=== PATIENT | male | born 1955 | race Caucasian/White ===

== ENCOUNTER 2017-12-01 17:02 | Emergency (ER) | payer SELFPAY ==
[~2017-12-01 17:02] MED LIST: Sodium Chloride Irrig Solution 250 ML BOT ONE; Sterile Water Irrigation 250 ML BOT ONE
[2017-12-01] MEDS ORDERED: Adacel (T-DAP) 0.5 ML VIAL ONE (17:31)
[2017-12-01 17:50] LABS: #Basophils 0.2 thou/uL (0.0-0.2); #Eosinphils 0.3 thou/uL (0.0-0.7); #Lymphocytes 3.1 thou/uL (1.20-3.40); #Monocytes 0.5 thou/uL (0.11-0.59); #Neutrophils 5.6 thou/uL (1.40-6.50); %Basophils 1.7 % (0.0-1.0); %Eosinophils 3.3 % (0.0-10.0); %Lymphocytes 31.7 % (21.0-51.0); %Monocytes 5.6 % (0.0-10.0); %Neutrophils 57.7 % (42.0-75.0); Mean Corpuscular HGB CONC 31.5 g/dL (32.0-36.0); Mean Corpuscular Hemoglobin 29.8 pg (27.0-31.0); Mean Corpuscular Volume 94.5 fl (80.0-94.0); Mean Platelet Volume 6.6 fL (7.4-10.4); Platelet Count 362 thou/uL (130-400); RBC Distribution Width 13.1 % (11.5-14.5); Red Blood Cell (RBC) Count 5.36 mill/uL (4.70-6.10); White Blood Cell (WBC) Count 9.7 thou/uL (4.8-10.8)
[2017-12-01 18:02] LABS: ALT (SGPT) 33 U/L (8-55); AST (SGOT) 28 U/L (5-34); Albumin 4.3 g/dL (3.5-5.0); Alcohol 198 mg/dL (Less than 10); Alkaline Phosphatase 60 U/L (40-150); Anion Gap 14 mmol/L (10-20); BUN (Urea Nitrogen) 10 mg/dL (8.4-25.7); Bilirubin, Total 0.3 mg/dL (0.2-1.2); Calc. Creatinine Clearance 0 mL/min (70-130); Calcium 9.3 mg/dL (7.8-10.44); Carbon Dioxide 28 mmol/L (22-29); Chloride 104 mmol/L (98-107); Estimated GFR-MDRD Greater than 90; Glucose 99 mg/dL (70-105); Potassium 4.4 mmol/L (3.5-5.1); Protein, Total 7.3 g/dL (6.0-8.3); Sodium 142 mmol/L (136-145)
--- NOTE | 2017-12-01 18:17 | RAD ---
FOURTH AND FIFTH FINGERS LEFT HAND: 12/01/17 Three views obtained. HISTORY: Injury with table saw. Soft tissue disruption is seen involving the tips of both fourth and fifth fingers. There are fractur es involving the tuft of the distal phalanx of both fourth and fifth fingers. These fractures show mi ld displacement at both sites. IMPRESSION: Soft tissue disruption of the distal fourth and fifth fingers with fractures involving the tuft of th e distal phalanx of the fourth and fifth fingers. POS: [facility]O
== END 2017-12-01 18:45 | disposition short-term general hospital (02) ==
LOC: MADERS 17:02
DX: S62.635A Displaced fracture of distal phalanx of left ring finger, initial encounter for closed fracture (principal); S62.637A Displaced fracture of distal phalanx of left little finger, initial encounter for closed fracture; S61.305A Unspecified open wound of left ring finger with damage to nail, initial encounter; S61.307A Unspecified open wound of left little finger with damage to nail, initial encounter; I10 Essential (primary) hypertension; F17.210 Nicotine dependence, cigarettes, uncomplicated; W26.8XXA Contact with other sharp object(s), not elsewhere classified, initial encounter
CPT/HCPCS: 36415; 80053; 80307; 85025; 90471; 90715

== ENCOUNTER 2025-08-20 10:00 | Outpatient (CLI) | payer MEDICARE ==
[2025-08-20 10:32] LABS: Cardiac Risk 3.2 (Less than 4.5); Cholesterol 110.0 mg/dl (< 200 Desired); HDL Cholesterol 34.0 mg/dL (>60 Neg Risk); LDL Cholesterol, Calculated 61.0 mg/dL; Triglycerides 77.0 mg/dL (Less than 150)
== END 2025-08-20 10:01 | disposition home or self-care (01) ==
LOC: MADLAB 10:00
PROVIDERS: ATTEND Internal Medicine Cardiovascular Disease
DX: I25.10 Atherosclerotic heart disease of native coronary artery without angina pectoris (principal)
CPT/HCPCS: 36415; 80061